=== PATIENT | female | born 1980 | race American Indian/Alaskan Native ===

== ENCOUNTER 2016-11-22 06:06 | Inpatient (IN) | payer OTHER ==
[2016-11-13 13:31] VITALS: BMI 26.6
[2016-11-22] MEDS ORDERED: Propofol 10 mg/ml Inj (20 ML) ONE (07:05)
[2016-11-22] MEDS ORDERED: Succinylcholine 200 mg/10 ml Inj IV ONE (07:06)
[2016-11-22] MEDS ORDERED: Midazolam 2 MG/2 ML VIAL ONE (07:06)
[2016-11-22] MEDS ORDERED: Rocuronium 10 mg/ml (5 ml) ONE (07:06)
[2016-11-22] MEDS ORDERED: Lidocaine 4% (Laryng-O-Jet) Kit MM ONE (07:06)
[2016-11-22] MEDS ORDERED: ePHEDrine 50 mg/ml Inj ONE ×2 (07:10→08:29)
[2016-11-22] MEDS ORDERED: Phenylephrine 10 mg/ml Inj ONE (07:23)
[2016-11-22] MEDS ORDERED: Lactated Ringer's 1,000 ML IV ONE (08:00)
--- NOTE | 2016-11-22 08:03 | CP.PCM.HP ---
History of Present Illness - History of Present Illness History of Present Illness: Patient presents to the hospital for the management of symptomatic fibroid uterus pelvic pressure pain menorrhagia Present on Admission - Present on Admission Any Indicators Present on Admission: No Review of Systems - Constitutional Constitutional: As Per HPI - EENT Eyes: As Per HPI Nose/Mouth/Throat: As Per HPI - Breasts Breasts: As Per HPI - Cardiovascular Cardiovascular: As Per HPI - Respiratory Respiratory: As Per HPI - Gastrointestinal Gastrointestinal: As Per HPI - Genitourinary Genitourinary: As Per HPI - Reproductive: Female Reproductive:Female: As Per HPI - Menstruation Menstruation: As Per HPI - Musculoskeletal Musculoskeletal: As Per HPI - Integumentary Integumentary: As Per HPI - Neurological Neurological: As Per HPI - Psychiatric Psychiatric: As Per HPI - Endocrine Endocrine: As Per HPI Past Patient History - Past Medical History & Family History Past Medical History?: No - Past Social History Smoking Status: Never Smoked - NEUROLOGICAL Hx Neurological Disorder: Yes Hx Migraine: Yes - HEENT Hx HEENT Problems: No - RENAL Hx Chronic Kidney Disease: No - ENDOCRINE/METABOLIC Hx Endocrine Disorders: No - HEMATOLOGICAL/ONCOLOGICAL Hx Blood Disorders: No - INTEGUMENTARY Hx Dermatological Problems: No - MUSCULOSKELETAL/RHEUMATOLOGICAL Hx Musculoskeletal Disorders: No - GASTROINTESTINAL Hx Gastrointestinal Disorders: No - GENITOURINARY/GYNECOLOGICAL Hx Genitourinary Disorders: No - PSYCHIATRIC Hx Psychophysiologic Disorder: No - SURGICAL HISTORY Hx Surgeries: Yes Other/Comment: EXCISION OF GANGRIAN CYST LEFT WRIST - ANESTHESIA Hx Anesthesia: Yes Hx Anesthesia Reactions: No Hx Malignant Hyperthermia: No Has any member of the family had a problem w/ anesthesia?: No Meds Allergies/Adverse Reactions: Allergies Allergy/AdvReac Type Severity Reaction Status Date / Time No Known Allergies Allergy Verified 11/13/16 13:30 Physical Exam - Eye Exam Eye Exam: Normal appearance - ENT Exam ENT Exam: Mucous Membranes Moist - Neck Exam Neck exam: Positive for: Normal Inspection - Respiratory Exam Respiratory Exam: Clear to Auscultation Bilateral - Cardiovascular Exam Cardiovascular Exam: REGULAR RHYTHM - GI/Abdominal Exam GI & Abdominal Exam: Normal Bowel Sounds - Rectal Exam Rectal Exam: NORMAL INSPECTION - Back Exam Back exam: NORMAL INSPECTION Results - Vital Signs Recent Vital Signs: Last Vital Signs Temp 98.9 F 11/22/16 06:35 Pulse 67 11/22/16 06:38 Resp 20 11/22/16 06:35 BP 138/86 11/22/16 06:35 Pulse Ox 100 11/22/16 06:35 - Labs Labs: Laboratory Results - last 24 hr 11/22/16 07:16 BBK History Checked No verified bt Assessment & Plan - Assessment and Plan (Free Text) Assessment: symptomatic fibroid uterus informed consent obtained discussed r/b/a to surgery will admit for post op management
[2016-11-22] MEDS ORDERED: Dexamethasone 4 mg/1 ml ONE (08:20)
[2016-11-22] MEDS ORDERED: Vasopressin 20 Units/ml Inj ONE (08:43)
[2016-11-22] MEDS ORDERED: Neostigmine Methylsulfate 3mg/3ml Syringe IV ONE (08:49)
[2016-11-22] MEDS ORDERED: Vasopressin 20 Units/ml Inj INJ ONE ×2 (08:56)
[2016-11-22] MEDS ORDERED: Naloxone 0.4 mg/ml Inj (Adult) IVP PRN (10:09)
[2016-11-22] MEDS: HYDROmorphone 0.5 mg/0.5 ml ISec IVP PRN ×4 (10:15→11:00)
[2016-11-22] MEDS ORDERED: Lactated Ringer's 1,000 ML IV SCH (10:15)
--- NOTE | 2016-11-22 11:30 | OP ---
PROCEDURE DATE: 11/22/2016 PREOPERATIVE DIAGNOSIS: Symptomatic fibroid uterus. POSTOPERATIVE DIAGNOSIS: Symptomatic fibroid uterus. OPERATION PERFORMED: Laparotomy, myomectomy, hysteroscopy. SURGEON: Aidee Muñiz MD WEAVING LOOM OPERATOR: Dr. Sondra Colon ANESTHESIA: General administered by Dr. Sanabria. ESTIMATED BLOOD LOSS: 250 mL. URINE OUTPUT: Approximately 300 mL of clear urine. The patient received approximately 1300 mL of D5LR intraoperatively. OPERATIVE FINDINGS: A 15 cm fundal pedunculated myoma, an 8 cm posterior uterine myoma. Hysteroscop y revealed normal uterine cavity. Both ostia were visualized. No intracavitary fibroids were identi fied. The floor covering printer assistant was Dr. Colon. She was instrumental in the care of the patient. She helped retract, c reate exposure, was helpful in obtaining hemostasis and in closure of the patient. The procedure wou ld not have been possible without her assistance. PROCEDURE: After informed consent was obtained, the patient was taken to the operating room where sh e was given general anesthesia. She was then prepped and draped in the usual sterile fashion. A Pfa nnenstiel skin incision was then made with a scalpel and carried down to the underlying layer of fasc ia. The fascia was nicked in the midline. The fascial incision was then extended laterally with cur mark Yarbrough scissors. The superior aspect of the fascial incision was then grasped with Amber clamps, elevated up, and the rectus muscles were dissected off using both sharp and blunt dissection. Attent ion was then turned to the inferior aspect of the fascial incision which in similar fashion was grasp ed with Amber clamps, elevated up, and the rectus muscles were dissected off using both sharp and bl unt dissection. The rectus muscles were then in the midline. The peritoneum identified, g rasped with Ashley clamps and entered sharply with the Metzenbaum scissors. The peritoneal incision w as then extended superiorly and inferiorly with good visualization of the bladder. The abdomen was t hen explored with the findings noted above. The uterus was delivered through the abdominal incision. A large pedunculated fundal myoma was identified. It was doubly clamped with Ashley clamps and the fibroid was removed. The stalk was then cut with the curved Yarbrough scissors. Two Ramírez stitches were applied and hemostasis was noted. Attention was then turned to the posterior fibroid where approxima tely 5 mL of Pitressin was injected. The serosa was scored and the fibroid was grasped with a breast clamp and enucleated without complication. The uterine defect was then repaired with 2-0 Vicryl in a running fashion. The serosa was closed with 2-0 chromic in a running locked fashion. The abdomen was then copiously irrigated. The irrigant was removed with a suction device. Hemostasis was noted. Interceed was applied to the uterine incisions. The uterus was returned to the abdomen. The perit oneum was closed with 2-0 Vicryl. The muscle was reapproximated with 0 Vicryl in interrupted fashion . The fascia was closed with 0 Vicryl in a running fashion. Attention was then turned to the pelvis . The area was then prepped and draped. The patient was repositioned with Juanjose stirrups and the pa tient was prepped and draped in the usual sterile fashion. A speculum was then inserted in the vagin a. The cervix was visualized and grasped with a single-tooth tenaculum. A diagnostic hysteroscope w as performed to rule out any intracavitary fibroids due to MRI suggested findings. The cavity was ex plored. No intramural fibroids were identified. Both ostia were visualized. Photo micrographs were taken for documentation. All instruments were then removed from the vagina. Sponge, lap, needle, a nd instrument counts were correct x 2. The patient was taken to the recovery room in awake and stabl e condition. Aidee Muñiz MD cc: [phone] TT: 11/22/2016 11:29:21 en
[2016-11-22] MEDS: Lactated Ringer's 1,000 ML IV SCH (20:17)
[2016-11-23] MEDS: Lactated Ringer's 1,000 ML IV SCH ×4 (03:00→19:51)
[2016-11-23 06:40] LABS: HEMATOCRIT 34.7 % (34.0-47.0); MEAN CELL VOLUME 73.4 fl (81.0-99.0); MEAN CORPUSCULAR HEMOGLOBIN 22.8 pg (27.0-31.0); RED CELL DISTRIBUTION WIDTH 14.1 % (11.5-14.5); WHITE BLOOD COUNT 9.9 K/uL (4.8-10.8)
[2016-11-23] MEDS ORDERED: Oxycodone/Acetaminophen 5/325 mg Tab PO PRN (11:00)
--- NOTE | 2016-11-23 11:57 | CP.PCM.PN ---
Subjective - Date & Time of Evaluation Date of Evaluation: 11/23/16 Time of Evaluation: 11:49 - Subjective Subjective: Patient is a 36 you s/p abdominal myomectomy POD #1. Patient denies fever, no CP , no SOB, no Nausea/vomiting, tolerating PO liquid diet, ambulating minimal, + guzmán draining urine adequately, no vaginal bleeding, abdominal pain tolerable with meds Objective - Vital Signs/Intake and Output Vital Signs (last 24 hours): Temp Pulse Resp BP Pulse Ox 98.8 F 80 17 122/75 100 11/23/16 09:00 11/23/16 09:00 11/23/16 09:00 11/23/16 09:00 11/23/16 09:00 Intake and Output: 11/23/16 11/23/16 06:59 18:59 Intake Total 2125 120 Output Total 1500 Balance 625 120 - Medications Medications: Current Medications Docusate Sodium (Colace) 100 mg PO DAILY PHYLLIS Lactated Ringer's (Lactated Ringer's) 1,000 mls @ 125 mls/hr IV .Q8H PHYLLIS Last Admin: 11/23/16 03:00 Dose: 125 mls/hr Lactated Ringer's (Lactated Ringer's) 1,000 mls @ 125 mls/hr IV .Q8H PHYLLIS Ibuprofen (Motrin Tab) 600 mg PO Q6 PRN PRN Reason: Pain, moderate (4-7) Naloxone HCl (Narcan) 0.1 mg IVP Q2M PRN PRN Reason: Opiate reversal Ondansetron HCl (Zofran Inj) 4 mg IVP Q6 PRN PRN Reason: Nausea/Vomiting Last Admin: 11/22/16 21:25 Dose: 4 mg Oxycodone/Acetaminophen (Percocet 5/325 Mg Tab) 1 tab PO Q4 PRN PRN Reason: Pain, moderate (4-7) Stop: 11/26/16 11:00 Oxycodone/Acetaminophen (Percocet 5/325 Mg Tab) 2 tab PO Q4 PRN PRN Reason: Pain, severe (8-10) Stop: 11/26/16 11:01 Simethicone (Mylicon Chew Tab) 80 mg PO TID PRN PRN Reason: Flatulence - Labs Labs: 11/23/16 04:30 - Head Exam Head Exam: ATRAUMATIC - Respiratory Exam Respiratory Exam: Clear to Ausculation Bilateral, NORMAL BREATHING PATTERN - Cardiovascular Exam Cardiovascular Exam: REGULAR RHYTHM - GI/Abdominal Exam GI & Abdominal Exam: Soft, Normal Bowel Sounds Additional comments: INcision clean/dry/intact, nontender, non-distended - Exam External exam: NORMAL EXTERNAL EXAM Assessment and Plan - Assessment and Plan (Free Text) Plan: A/P POD #1 s/p abdominal myomectomy 1. Advance patient to reg diet 2. Discontinue TEACHER OF THE DEAF/HARD OF HEARING - start Percocet/Motrin prn pain 3. Colace/dulcolax prn constipation 4. Encourage ambulation, discontinue guzmán
[2016-11-23] MEDS: Simethicone 80 mg Chewtab PO PRN (13:40)
[2016-11-23] MEDS: Oxycodone/Acetaminophen 5/325 mg Tab PO PRN ×2 (13:43→22:33)
[2016-11-24] MEDS: Simethicone 80 mg Chewtab PO PRN (01:43)
--- NOTE | 2016-11-24 09:04 | CP.PCM.PN ---
Subjective - Date & Time of Evaluation Date of Evaluation: 11/24/16 Time of Evaluation: 08:53 - Subjective Subjective: Patient is a 36 yo G0 s/p abdominal myomectomy, POD #2, denies fever, CP, no SOB , no N/V, tolerating PO diet, abdominal pain tolerable with meds, mild vaginal bleeding, ambulating/voiding well Objective - Vital Signs/Intake and Output Vital Signs (last 24 hours): Temp Pulse Resp BP Pulse Ox 99.0 F 81 20 118/60 97 11/24/16 04:15 11/24/16 04:15 11/24/16 04:15 11/23/16 21:00 11/24/16 04:15 - Medications Medications: Current Medications Docusate Sodium (Colace) 100 mg PO DAILY PHYLLIS Last Admin: 11/23/16 13:40 Dose: 100 mg Ibuprofen (Motrin Tab) 600 mg PO Q6 PRN PRN Reason: Pain, moderate (4-7) Last Admin: 11/24/16 03:59 Dose: 600 mg Naloxone HCl (Narcan) 0.1 mg IVP Q2M PRN PRN Reason: Opiate reversal Ondansetron HCl (Zofran Inj) 4 mg IVP Q6 PRN PRN Reason: Nausea/Vomiting Last Admin: 11/22/16 21:25 Dose: 4 mg Oxycodone/Acetaminophen (Percocet 5/325 Mg Tab) 1 tab PO Q4 PRN PRN Reason: Pain, moderate (4-7) Stop: 11/26/16 11:00 Last Admin: 11/23/16 22:33 Dose: 1 tab Oxycodone/Acetaminophen (Percocet 5/325 Mg Tab) 2 tab PO Q4 PRN PRN Reason: Pain, severe (8-10) Stop: 11/26/16 11:01 Last Admin: 11/23/16 17:52 Dose: 2 tab Simethicone (Mylicon Chew Tab) 80 mg PO TID PRN PRN Reason: Flatulence Last Admin: 11/24/16 01:43 Dose: 80 mg - Labs Labs: 11/23/16 04:30 - Head Exam Head Exam: ATRAUMATIC - Respiratory Exam Respiratory Exam: NORMAL BREATHING PATTERN - Cardiovascular Exam Cardiovascular Exam: REGULAR RHYTHM - GI/Abdominal Exam GI & Abdominal Exam: Normal Bowel Sounds Additional comments: SOft, no rebound, non distended, Incision clean/dry/intact - Extremities Exam Extremities Exam: Normal Inspection Assessment and Plan - Assessment and Plan (Free Text) Plan: A/P 1. Patient doing well, tolerating PO diet, ambulating/voiding well, abdominal pain tolerable 2. Discharge pt home 3. Discharge instructions reviewed
[2016-11-24 10:50] VITALS: BP 109/65; PULSE 79; RESP 17; TEMP 97.9; O2SAT 99
== END 2016-11-24 10:35 | disposition home or self-care (01) | DRG 743 ==
LOC: H.OPSURG 06:06 → H.PEDS 09:59
PROVIDERS: ADMIT Obstetrics & Gynecology Gynecology; ATTEND Obstetrics & Gynecology Gynecology
PROC: 0UB90ZZ Excision of Uterus, Open Approach (ICD-10-PCS; principal; 2016-11-22 07:45)
PROC: 0UJD8ZZ Inspection of Uterus and Cervix, Via Natural or Artificial Opening Endoscopic (ICD-10-PCS; 2016-11-22 07:45)
DX: D25.9 Leiomyoma of uterus, unspecified (principal); N92.0 Excessive and frequent menstruation with regular cycle

== ENCOUNTER 2017-12-24 09:08 | Day surgery (SDC) | payer BC ==
[2017-12-22 10:33] VITALS: BMI 28.1
[2017-12-24 09:55] LABS: HEMOGLOBIN 11.8 g/dL (12.0-16.0); MEAN CELL VOLUME 72.4 fl (81.0-99.0); MEAN CORPUSCULAR HGB CONC 31.7 g/dL (33.0-37.0); RBC 5.11 Mil/uL (3.80-5.20); RED CELL DISTRIBUTION WIDTH 13.8 % (11.5-14.5); WHITE BLOOD COUNT 4.7 K/uL (4.8-10.8)
[2017-12-24] MEDS ORDERED: Propofol 10 mg/ml Inj (20 ML) ONE (11:23)
[2017-12-24] MEDS ORDERED: Succinylcholine 200 mg/10 ml Inj IV ONE (11:23)
[2017-12-24] MEDS ORDERED: ePHEDrine 50 mg/ml Inj ONE (11:23)
[2017-12-24] MEDS ORDERED: Midazolam 2 MG/2 ML VIAL ONE (11:23)
[2017-12-24] MEDS ORDERED: Silver Nitrate Topical - Stick ONE (11:26)
[2017-12-24] MEDS ORDERED: Lactated Ringer's 1,000 ML IV ONE (11:35)
[2017-12-24] MEDS ORDERED: Dexamethasone 4 mg/1 ml ONE (11:52)
[2017-12-24 12:35] VITALS: RESP 18
[2017-12-24] MEDS: HYDROmorphone 0.5 mg/0.5 ml ISec IVP PRN ×2 (13:19→13:45)
[2017-12-24 14:56] VITALS: BP 136/86; PULSE 69; TEMP 97.5; O2SAT 100
--- NOTE | 2017-12-25 08:24 | OP ---
PROCEDURE DATE: 12/24/2017 PREOPERATIVE DIAGNOSES: Fibroid uterus, intracavitary fibroid, irregular vaginal bleeding. POSTOPERATIVE DIAGNOSES: Fibroid uterus, intracavitary fibroid, irregular vaginal bleeding. OPERATION PERFORMED: MyoSure myomectomy. SURGEON: Aidee Muñiz MD TYPE OF ANESTHESIA: General. ANESTHESIA ADMINISTERED BY: Dr. Saxena. ESTIMATED BLOOD LOSS: Minimal. URINE OUTPUT: The patient was straight cath prior to starting the procedure. IV FLUID INTAKE: The patient received approximately 600 mL of D5, LR intraoperatively. OPERATIVE FINDINGS: Normal external female genitalia, normal urethra, cervix smooth, uterus anteverted, approximately 10-week size, vagina pink. The hysteroscopic findings were positive 3 cm posterior wall myoma and both ostia were visualized. DESCRIPTION OF PROCEDURE: After informed consent was obtained, the patient was taken to the operating room where she was given general anesthesia. She was placed in the [facility] and placed in a dorsal lithotomy position. A red rubber catheter was inserted into the bladder to drain the bladder of its contents. A speculum was inserted into the vagina. The cervix was identified and grasped with a single tooth tenaculum. The cervix was then gently dilated. The MyoSure hysteroscope was then inserted to the uterine cavity with the myoma and findings noted above. The large MyoSure device was then inserted into the uterine cavity and the fibroid was resected using several process. Photos were taken for documentation. After completion of the procedure, all instruments were removed from the vagina. Uterine cavity was normal in appearance. The fibroid was resected in its entirety. The patient was taken to the recovery room. All sponge, lap, needle, and instrument counts were correct x2. Fluid deficit was 150 mL. The patient tolerated the procedure well. Aidee Muñiz MD
== END 2017-12-24 15:15 | disposition home or self-care (01) ==
LOC: H.OPSURG 09:08
PROVIDERS: ATTEND Obstetrics & Gynecology Gynecology
DX: D25.9 Leiomyoma of uterus, unspecified (principal); I10 Essential (primary) hypertension; N93.8 Other specified abnormal uterine and vaginal bleeding
CPT/HCPCS: 36415; 58561; 85027; 86850; 86900; 88305; J0330; J1100; J1170; J2001; J2250; J2704; J2765; J3010; J7030; J7120